=== PATIENT | male | born 1985 | race Caucasian/White ===

== ENCOUNTER 2019-11-18 08:02 | Emergency (ER) | payer SELFPAY ==
[~2019-11-18] VITALS: Ht 195.5 cm; Wt 97.7 kg
[2019-11-18] MEDS ORDERED: LORazepam INJ 2 MG/ML (ATIVAN) VIAL IVP STA (08:13)
[2019-11-18] MEDS ORDERED: LACTATED RINGERS 1,000 ML IV ONE (08:16)
--- NOTE | 2019-11-18 08:41 | ED General ---
General Chief Complaint: Neuro-Stroke Like Symptoms Nursing Triage Note: Patient presents to the ED via EMS with c/o left sided numbness and weakness. He states that he has been having tingling and numbness on his left side intermittently for 2 days. He reports that he was seen at [facility] 2 days ago and was told he had a pinched nerve. Patient states he has a history of TIA's. Nursing Sepsis Screen: No Definite Risk History of Present Illness Date Seen by Provider: Nov 18, 2019 Time Seen by Provider: 08:00 Initial Comments The patient is a 34-year-old male with a history of factor V Leiden and recurrent TIAs in the past per him. He presents with concern for 2 days of left- sided numbness and tingling affecting his entire left face, left arm and left leg. He reports some associated subjective minimal left-sided weakness as well. Patient was seen 2 days ago for these symptoms at the [facility] at which time labs including troponin and d-dimer and a chest x-ray were obtained (patient was reporting some chest pressure 2 days ago although denies it now) and testing was reportedly reassuring. Patient was told that his symptoms likely related to a "pinched nerve in his neck." He was provided with a soft left wrist brace and instructed to follow-up with primary care. Patient states symptoms have not abated since he was seen at [place]. He states that they have also not worsened and are about the same as they were at that visit. He denies associated fevers, nausea or vomiting, headache, neck stiffness/pain/meningismus, vision changes, shortness of breath or chest pain, abdominal pain, flank pain, dysuria or hematuria, changes in bowel habits. He denies any falls or injuries to his head or neck recently. He denies any use of drugs or alcohol. Patient is alert and oriented 4 and pleasantly and appropriately interactive and in absolutely no acute distress upon initial assessment here in the emergency department. He does appear somewhat anxious which he states is typical for him when he is in hospitals. Vital signs are appropriate here. Allergies and Home Medications Allergies Uncoded Allergies: IVP DYE (Allergy, Unknown, Shortness of Breath, 11/18/19) Patient Home Medication List Home Medication List Reviewed: Yes Review of Systems Review of Systems Constitutional: see HPI All Other Systems Reviewed Negative Unless Noted: Yes (Negative excepted noted.) Past Dfmuflb-Ewperm-Okqskw Hx Past Med/Social Hx: Reviewed Nursing Past Med/Soc Hx Patient Social History Alcohol Use: Denies Use Recreational Drug Use: No Smoking Status: Never a Smoker 2nd Hand Smoke Exposure: No Recent Foreign Travel: No Contact w/Someone Who Travel: No Recent Infectious Disease Expo: No Recent Hopitalizations: No Physical Abuse: No Sexual Abuse: No Mistreated: No Immunizations Up To Date Tetanus Booster (TDap): Unknown Seasonal Allergies Seasonal Allergies: No Past Medical History Surgeries: Yes (Multiple hernia repair) Abdominal, Testicular Respiratory: No Cardiac: No Neurological: Yes TIA Genitourinary: No Gastrointestinal: No Musculoskeletal: No Endocrine: No HEENT: No Cancer: No Psychosocial: Yes ADD/ADHD Integumentary: No Blood Disorders: Yes (Factor V) Family Medical History Reviewed Nursing Family Hx Physical Exam Vital Signs Vital Signs - First Documented 11/18/19 08:02 Temp 36.8 Pulse 82 Resp 16 B/P (MAP) 133/84 (100) Pulse Ox 100 Capillary Refill : Less Than 3 Seconds Height, Weight, BMI Height: '" Weight: lbs. oz. kg; 25.00 BMI Method: General Appearance: No Apparent Distress Comments This is a younger male appearing nontoxic and in no acute distress. He does appear mildly anxious. Head is normocephalic and atraumatic. Neck is supple and nontender. There is no neck stiffness or meningismus and the patient is able to range his neck fully in all dimensions without discomfort or distress. Oropharynx is moist. Lungs are clear to auscultation at all stations. There is a normal S1 and S2 without rubs or gallops and capillary refill is appropriate, less than 2 seconds globally. Pulses are 2+ to all 4 extremities distally and extremities are warm and well-perfused. Abdomen is soft, nontender and nondistended. Skin is warm and dry without cyanosis, clubbing or edema. Psychiatrically, the patient demonstrates appropriate mood and affect and is alert. Neurologically, examination is remarkable primarily for subjectively diminished sensation to light touch over the entire left face, left arm and left leg. Otherwise, cranial nerves II through XII are intact and no lateralizing deficits are seen. Speech is normal. Language is normal. Coordination is normal. Visual martinez are intact to confrontation and finger counting bilaterally. There is no dysmetria with bcjpbi-oy-pwfj or jygu-el-jlda bilaterally. Strength is 5 out of 5 at all joints of bilateral upper and lower extremities. Sensation is intact to light touch in right upper and lower extremities and diminished to light touch in left upper and lower extremities. The patient ambulates with a narrow, steady gait here in the emergency department. He is alert and oriented 4. Progress/Results/Core Measures Suspected Sepsis Recent Fever Within 48 Hours: No Infection Criteria Present: None New/Unexplained Altered Menta: No Sepsis Screen: No Definite Risk SIRS Temperature: Pulse: 82 Respiratory Rate: 16 Laboratory Tests 11/18/19 08:15: White Blood Count 6.6 Blood Pressure 133 /84 Mean: 100 Laboratory Tests 11/18/19 08:15: Creatinine 0.84, Platelet Count 255, Total Bilirubin 1.1H 11/18/19 08:56: INR Comment 1.1 Results/Orders Lab Results Laboratory Tests Test 11/18/19 08:15 11/18/19 08:56 Range/Units White Blood Count 6.6 4.3-11.0 10^3/uL Red Blood Count 4.84 4.35-5.85 10^6/uL Hemoglobin 14.1 13.3-17.7 G/DL Hematocrit 41 40-54 % Mean Corpuscular Volume 84 80-99 FL Mean Corpuscular Hemoglobin 29 25-34 PG Mean Corpuscular Hemoglobin Concent 35 32-36 G/DL Red Cell Distribution Width 11.7 10.0-14.5 % Platelet Count 255 130-400 10^3/uL Mean Platelet Volume 11.0 H 7.4-10.4 FL Neutrophils (%) (Auto) 65 42-75 % Lymphocytes (%) (Auto) 24 12-44 % Monocytes (%) (Auto) 9 0-12 % Eosinophils (%) (Auto) 1 0-10 % Basophils (%) (Auto) 1 0-10 % Neutrophils # (Auto) 4.3 1.8-7.8 X 10^3 Lymphocytes # (Auto) 1.6 1.0-4.0 X 10^3 Monocytes # (Auto) 0.6 0.0-1.0 X 10^3 Eosinophils # (Auto) 0.1 0.0-0.3 10^3/uL Basophils # (Auto) 0.1 0.0-0.1 10^3/uL Sodium Level 138 135-145 MMOL/L Potassium Level 3.5 L 3.6-5.0 MMOL/L Chloride Level 99 98-107 MMOL/L Carbon Dioxide Level 22 21-32 MMOL/L Anion Gap 17 H 5-14 MMOL/L Blood Urea Nitrogen 12 7-18 MG/DL Creatinine 0.84 0.60-1.30 MG/DL Estimat Glomerular Filtration Rate > 60 BUN/Creatinine Ratio 14 Glucose Level 109 H 70-105 MG/DL Calcium Level 9.2 8.5-10.1 MG/DL Corrected Calcium 8.9 8.5-10.1 MG/DL Total Bilirubin 1.1 H 0.1-1.0 MG/DL Aspartate Amino Transf (AST/SGOT) 9 5-34 U/L Alanine Aminotransferase (ALT/SGPT) 7 0-55 U/L Alkaline Phosphatase 79 40-136 U/L Troponin I < 0.30 <0.30 NG/ML Total Protein 7.2 6.4-8.2 GM/DL Albumin 4.4 3.2-4.5 GM/DL Prothrombin Time 14.4 12.2-14.7 SEC INR Comment 1.1 0.8-1.4 Activated Partial Thromboplast Time 20 L 24-35 SEC My Orders Orders - FREDO AVELAR MD Cbc With Automated Diff (11/18/19 08:13) Comprehensive Metabolic Panel (11/18/19 08:13) Troponin I Fs (11/18/19 08:13) Ekg Tracing (11/18/19 08:13) Chest 1 View Ap/Pa Only (11/18/19 08:13) Protime With Inr (11/18/19 08:13) Partial Thromboplastin Time (11/18/19 08:13) Ct Head Wo (11/18/19 08:13) Lorazepam Injection (Ativan Injection) (11/18/19 08:13) Ed Iv/Invasive Line Start (11/18/19 08:16) Lactated Ringers (Lr 1000 Ml Iv Solution (11/18/19 08:16) Aspirin Tablet (Aspirin Tablet) (11/18/19 09:30) Potassium Chloride (Tablet) (K Dur Table (11/18/19 09:30) Medications Given in ED Current Medications Medications Dose Ordered Sig/Becca Route Start Time Stop Time Status Last Admin Dose Admin Lactated Ringer's 1,000 ml @ 0 mls/hr Q0M ONCE IV 11/18/19 08:16 11/18/19 08:18 DC 11/18/19 08:37 0 MLS/HR Vital Signs/I&O 11/18/19 08:02 Temp 36.8 Pulse 82 Resp 16 B/P (MAP) 133/84 (100) Pulse Ox 100 Capillary Refill : Less Than 3 Seconds Blood Pressure Mean: 100 Progress Note : Time: 09:00 Progress Note 34-year-old male with a history of factor V Leiden and recurrent TIAs in the past per him, not on any chronic medications, who presents for evaluation of 2 days of numbness and tingling to the left side of his body involving left face, arm and leg. Also reporting subjective weakness on the left side which she state s is minimal but this is not appreciated objectively on exam. Cardiorespiratory workup including d-dimer was reportedly reassuring 2 days ago at [place]; we'll attempt to obtain records. We will check labs and EKG and chest x-ray and a noncontrast head CT and will then reevaluate. Given hypercoagulable state, history of recurrent TIAs in the past and 2 days of left-sided numbness and tingling, anticipate that the patient will require transfer to a higher level of care for neurology evaluation, likely MRI and further care as indicated. Patient is in agreement with this plan of care. NIHSS 1. Patient does not qualify for thrombolysis with alteplase given 2 full days of symptoms and minimal, nondisabling deficits. 1000: Records have arrived from [facility]; unremarkable cardiorespiratory workup at that facility noted. Labs and imaging are without evidence of acute process aside from mild hypokalemia which has been addressed with 40 mEq of oral potassium here in the emergency department. Patient has received a normal saline fluid bolus as well as some Ativan for anxiety. Left- sided numbness and tingling are unchanged upon reassessment. Spoke with patient regarding need for further assessment in the hospital to include neurology evaluation, likely MRI and further care as indicated. Patient is in agreement. As there is no neurology support at [facility] we'll transfer the patient to [facility] where he is graciously accepted in transfer by Dr. Reusch. Patient has been given 324mg of aspirin prior to transfer to [facility]. ECG Comment Sinus tachycardia, rate 100, no acute ST elevation or depression, mildly prolonged QTc at 502, WA 162, QRS 100, nonischemic tracing, EP interpretation. Diagnostic Imaging Comments XR chest: no acute process, EP interp CT HEAD WO CLINICAL INDICATION: Patient left-sided numbness x2 days. Patient has history of TIAs. EXAM: Axial CT scan of the brain without IV contrast with coronal and sagittal reformatted images. Auto Exposure Controls were utilized during the CT exam to meet ALARA standards for radiation dose reduction. COMPARISON: None. FINDINGS: There is motion and skull streak artifact which obscures portions of the brainstem, cerebellum, and portions of the brain and skull. There is no evidence of acute cerebral infarct, intracranial hemorrhage, or gross mass effect. The brain parenchymal volume appears appropriate for patient's age. There is normal garcia-white matter distinction. There is no significant midline shift or herniation. There is no evidence of hydrocephalus. The basal cisterns are unremarkable. The skull, extracranial soft tissue, and orbits are unremarkable. The paranasal sinuses are unremarkable. Temporal bones show no significant abnormality. IMPRESSION: Unremarkable CT scan of the brain. Dictated on workstation # [id number] Departure Impression Primary Impression: Left sided numbness Additional Impression: Acute hypokalemia Disposition: XF SHT-TRM HOSP Condition: Stable Transfer Transfer Reason: Exceeds level of care Time Spoke to Accepting Phy: 10:00 Transfer Progress Notes 34-year-old who presents with 2 days of left-sided numbness and tingling as well as subjective but not objective left-sided weakness. 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 Requires evaluation by neurology; no neurology coverage at [facility]. We will therefore proceed with transfer to [facility] where the patient is graciously accepted in transfer by Dr. Lobato. Transfer Time: 10:00 Method of Transfer: EMS FREDO AVELAR MD Nov 18, 2019 08:41
[2019-11-18 08:51] LABS: HEMATOCRIT 41 % (40-54); HEMOGLOBIN 14.1 G/DL (13.3-17.7); MEAN CORPUSCULAR HEMOGLOBIN 29 PG (25-34); MEAN CORPUSCULAR HGB CONC 35 G/DL (32-36); MEAN CORPUSCULAR VOLUME 84 FL (80-99); WHITE BLOOD COUNT 6.6 10^3/uL (4.3-11.0)
[2019-11-18 08:52] LABS: BASOPHILS # (AUTO) 0.1 10^3/uL (0.0-0.1); BASOPHILS % (AUTO) 1 % (0-10); EOSINOPHILS # (AUTO) 0.1 10^3/uL (0.0-0.3); EOSINOPHILS % (AUTO) 1 % (0-10); LYMPHOCYTES # (AUTO) 1.6 X 10^3 (1.0-4.0); LYMPHOCYTES % (AUTO) 24 % (12-44); MONOCYTES # (AUTO) 0.6 X 10^3 (0.0-1.0); MONOCYTES % (AUTO) 9 % (0-12); NEUTROPHILS # (AUTO) 4.3 X 10^3 (1.8-7.8); NEUTROPHILS % (AUTO) 65 % (42-75); PLATELET COUNT 255 10^3/uL (130-400); RED CELL DISTRIBUTION WIDTH 11.7 % (10.0-14.5)
--- NOTE | 2019-11-18 09:00 | Diagnostic Imaging Report ---
EXAMINATION: Chest, 1 view. HISTORY: Left-sided numbness. COMPARISON: None available. FINDINGS: The lung volumes are normal. No focal consolidation is seen. No large pleural effusion or pneumothorax is seen. The cardiomediastinal silhouette is normal in size and contour. No acute osseous abnormality is seen. IMPRESSION: No acute pleuroparenchymal process. Dictated by: Dictated on workstation # [id number]
--- NOTE | 2019-11-18 09:10 | Diagnostic Imaging Report ---
CLINICAL INDICATION: Patient left-sided numbness x2 days. Patient has history of TIAs. EXAM: Axial CT scan of the brain without IV contrast with coronal and sagittal reformatted images. Auto Exposure Controls were utilized during the CT exam to meet ALARA standards for radiation dose reduction. COMPARISON: None. FINDINGS: There is motion and skull streak artifact which obscures portions of the brainstem, cerebellum, and portions of the brain and skull. There is no evidence of acute cerebral infarct, intracranial hemorrhage, or gross mass effect. The brain parenchymal volume appears appropriate for patient's age. There is normal garcia-white matter distinction. There is no significant midline shift or herniation. There is no evidence of hydrocephalus. The basal cisterns are unremarkable. The skull, extracranial soft tissue, and orbits are unremarkable. The paranasal sinuses are unremarkable. Temporal bones show no significant abnormality. IMPRESSION: Unremarkable CT scan of the brain. Dictated by: Dictated on workstation # [id number]
[2019-11-18 09:11] LABS: ALANINE AMINOTRANSFERASE 7 U/L (0-55); ALBUMIN 4.4 GM/DL (3.2-4.5); ALKALINE PHOSPHATASE 79 U/L (40-136); BILIRUBIN,TOTAL 1.1 MG/DL (0.1-1.0); BUN/CREATININE RATIO 14; CALCIUM 9.2 MG/DL (8.5-10.1); CARBON DIOXIDE 22 MMOL/L (21-32); CHLORIDE 99 MMOL/L (98-107); CREATININE SERUM 0.84 MG/DL (0.60-1.30); GFR ESTIMATED > 60; GLUCOSE 109 MG/DL (70-105); POTASSIUM 3.5 MMOL/L (3.6-5.0); SODIUM 138 MMOL/L (135-145); TOTAL PROTEIN 7.2 GM/DL (6.4-8.2)
[2019-11-18 09:24] LABS: INR 1.1 (0.8-1.4); PROTHROMBIN TIME PATIENT 14.4 SEC (12.2-14.7)
[2019-11-18] MEDS ORDERED: KCL 20 MEQ TAB (K-DUR) PO ONE (09:30)
[2019-11-18] MEDS ORDERED: ASPIRIN 325 MG (5 GR) TABLET PO ONE (09:30)
[2019-11-18] MEDS ORDERED: LORazepam 0.5 MG (ATIVAN) TABLET PO STA (10:12)
[2019-11-18 10:42] VITALS: BP 123/78
[2019-11-18 10:54] VITALS: BP 122/69
== END 2019-11-18 10:56 | disposition short-term general hospital (02) ==
LOC: ER FS 08:05 → EDBD 08:05 → ER FS 10:56
DX: E87.6 Hypokalemia (principal); Z86.73 Personal history of transient ischemic attack (TIA), and cerebral infarction without residual deficits; Z91.041 Radiographic dye allergy status
CPT/HCPCS: 36415; 70450; 71045; 80053; 84484; 85025; 85610; 85730; 93005

== ENCOUNTER 2020-07-17 15:14 | Emergency (ER) | payer OTHER ==
[~2020-07-17] VITALS: Ht 195.5 cm; Wt 97.7 kg
[2020-07-17 16:15] LABS: BASOPHILS % (AUTO) 1 % (0-10); EOSINOPHILS % (AUTO) 0 % (0-10); HEMATOCRIT 44 % (40-54); HEMOGLOBIN 15.4 G/DL (13.3-17.7); LYMPHOCYTES # (AUTO) 1.5 X 10^3 (1.0-4.0); LYMPHOCYTES % (AUTO) 15 % (12-44); MEAN CORPUSCULAR HEMOGLOBIN 30 PG (25-34); MEAN CORPUSCULAR HGB CONC 35 G/DL (32-36); MEAN CORPUSCULAR VOLUME 86 FL (80-99); MEAN PLATELET VOLUME 10.2 FL (7.4-10.4); MONOCYTES # (AUTO) 0.7 X 10^3 (0.0-1.0); MONOCYTES % (AUTO) 7 % (0-12); NEUTROPHILS # (AUTO) 7.5 X 10^3 (1.8-7.8); NEUTROPHILS % (AUTO) 77 % (42-75); PLATELET COUNT 240 10^3/uL (130-400); WHITE BLOOD COUNT 9.8 10^3/uL (4.3-11.0)
[2020-07-17 16:16] LABS: BASOPHILS # (AUTO) 0.1 10^3/uL (0.0-0.1)
[2020-07-17 16:26] LABS: EOSINOPHILS % (MANUAL) 2 %; LYMPHOCYTES % (MANUAL) 16 %; MONOCYTES % (MANUAL) 8 %; NEUTROPHILS % (MANUAL) 74 %; RBC MORPH NORMAL
[2020-07-17 16:27] LABS: ALANINE AMINOTRANSFERASE 9 U/L (0-55); ALKALINE PHOSPHATASE 84 U/L (40-136); BILIRUBIN,TOTAL 0.8 MG/DL (0.1-1.0); BUN/CREATININE RATIO 18; CALCIUM 9.1 MG/DL (8.5-10.1); CARBON DIOXIDE 27 MMOL/L (21-32); CHLORIDE 103 MMOL/L (98-107); CREATININE SERUM 0.87 MG/DL (0.60-1.30); GFR ESTIMATED > 60; GLUCOSE 97 MG/DL (70-105); POTASSIUM 3.9 MMOL/L (3.6-5.0); SODIUM 139 MMOL/L (135-145); TOTAL PROTEIN 7.2 GM/DL (6.4-8.2)
[2020-07-17 16:28] LABS: ALBUMIN 4.4 GM/DL (3.2-4.5)
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
[2020-07-17] MEDS ORDERED: morphine INJ 10 MG/ML 1ML (SYR OR VIAL) IVP STA (16:42)
[2020-07-17] MEDS ORDERED: ONDANSETRON 4 MG/2 ML (SDV) Z0FRAN IVP ONE (16:45)
[2020-07-17] MEDS ORDERED: ONDANSETRON 4 MG (ZOFRAN) ORAL DISSOLVE TAB ONE (16:47)
[2020-07-17] MEDS ORDERED: ONDANSETRON 4 MG (ZOFRAN) ORAL DISSOLVE TAB PO STA (16:54)
[2020-07-17] MEDS ORDERED: morphine INJ 10 MG/ML 1ML (SYR OR VIAL) IM STA (16:54)
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
[2020-07-17] MEDS ORDERED: TRM50T PO (17:28)
[2020-07-17 17:35] VITALS: BP 135/68
== END 2020-07-17 17:34 | disposition home or self-care (01) ==
LOC: EDUNIT# 15:14 → ER FS 15:16
DX: S39.011A Strain of muscle, fascia and tendon of abdomen, initial encounter (principal); M54.9 Dorsalgia, unspecified; F41.9 Anxiety disorder, unspecified; Z91.041 Radiographic dye allergy status; Z86.73 Personal history of transient ischemic attack (TIA), and cerebral infarction without residual deficits; V89.2XXA Person injured in unspecified motor-vehicle accident, traffic, initial encounter
CPT/HCPCS: 36415; 70450; 71250; 74176; 80053; 85007; 85027

== ENCOUNTER 2021-10-09 12:28 | Emergency (ER) | payer BC, OTHER ==
[~2021-10-09] VITALS: Ht 198 cm; Wt 110.0 kg
[2021-10-09 12:47] VITALS: BP 130/89
--- NOTE | 2021-10-09 12:59 | ED General ---
General Chief Complaint: General Problems/Pain Stated Complaint: COCCYX PAIN; LRQ PAIN Source of Information: Patient Exam Limitations: No Limitations History of Present Illness Date Seen by Provider: October 09, 2021 Time Seen by Provider: 12:30 Initial Comments Patient is a 36-year-old male presents with intermittent right lower quadrant pain which is sporadic for the past several months. Likewise he presents with sharp tailbone pain intermittent for the past several months. Currently denies tailbone pain and abdominal pain. Patient denies recent fall or injury. [place] He does not take any medications or being evaluated by a primary care physician for his current symptoms. No other symptoms or complaints Timing/Duration: 1-3 Hours Severity: Moderate Modifying Factors: improves with Other Associated Systoms: Other Allergies and Home Medications Allergies Uncoded Allergies: IVP DYE (Allergy, Unknown, Shortness of Breath, 11/18/19) Patient Home Medication List Home Medication List Reviewed: Yes Tramadol HCl (Tramadol HCl) 50 Mg Tablet, 50 MG PO Q6H PRN for PAIN Prescribed by: HARISH TORRES on 07/17/20 1728 Review of Systems Review of Systems Constitutional: see HPI EENTM: see HPI Respiratory: see HPI Cardiovascular: see HPI Genitourinary: see HPI Musculoskeletal: see HPI Skin: see HPI Psychiatric/Neurological: See HPI Hematologic/Lymphatic: See HPI Immunological/Allergic: see HPI All Other Systems Reviewed Negative Unless Noted: Yes Past Bngbhit-Plgaua-Zfloez Hx Patient Social History Tobacco Use?: Yes Use of E-Cig and/or Vaping dev: No Substance use?: No Alcohol Use?: Yes Alcohol Frequency: Once in a while Immunizations Up To Date Tetanus Booster (TDap): Unknown Seasonal Allergies Seasonal Allergies: No Past Medical History Surgeries: Yes (Multiple hernia repair) Abdominal, Testicular Respiratory: No Cardiac: No Neurological: Yes TIA Genitourinary: No Gastrointestinal: No Musculoskeletal: No Endocrine: No HEENT: No Cancer: No Psychosocial: Yes ADD/ADHD Integumentary: No Blood Disorders: Yes (Factor V) Physical Exam Vital Signs Capillary Refill : Height, Weight, BMI Height: '" Weight: lbs. oz. kg; 25.00 BMI Method: General Appearance: No Apparent Distress Neck: Full Range of Motion Respiratory: Normal Breath Sounds Cardiovascular: Regular Rate, Rhythm Neurologic/Psychiatric: Alert, Oriented x3 Progress/Results/Core Measures Suspected Sepsis SIRS Temperature: Pulse: Respiratory Rate: Blood Pressure / Mean: Results/Orders Vital Signs/I&O Capillary Refill : Departure Communication (Admissions) Patient with emergency medical screening exam. Patient does not require diagnosis or treatment in the emergency department today. He is instructed to follow-up with local primary care provider for outpatient screening and treatment. Impression Primary Impression: Musculoskeletal back pain Disposition: HOME, SELF-CARE Condition: Stable Departure-Patient Inst. Decision time for Depature: 12:59 Referrals: NO,LOCAL PHYSICIAN (PCP/Family) Primary Care Physician Add. Discharge Instructions: Please establish with a local primary care doctor for evaluation of chronic tailbone and right flank pain. In the meantime, take 2 Aleve twice daily. All discharge instructions reviewed with patient and/or family. Voiced understanding. HARISH TORRES DO October 09, 2021 12:59
== END 2021-10-09 13:00 | disposition home or self-care (01) ==
LOC: EDUNIT# 12:28 → ER FS 12:30
DX: M53.3 Sacrococcygeal disorders, not elsewhere classified (principal)
CPT/HCPCS: 99281

== ENCOUNTER → 2021-10-09 | Outpatient (CLI) | payer BC ==
[~2021-10-09] MED LIST: TRM50T PO
--- NOTE | 2021-10-09 17:05 | Diagnostic Imaging Report ---
EXAM: SACRUM COCCYX INDICATION: Sacrococcygeal pain. COMPARISON: CT pelvis without contrast 07/17/2020. FINDINGS: Subtle lucency and ill-defined cortex involving the tip of the sacrum with mild posterior angulation. Visualized paravertebral soft tissues are unremarkable. IMPRESSION: Ill-defined cortex subtle lucency through the distal coccyx is indeterminate. Although the alignment is stable compared to 07/17/2020, the lucency may be new versus differences in modality. Recommend further evaluation with CT or MRI. Dictated by: Dictated on workstation # [id number]
== END ==
LOC: RAD FS 14:45
PROVIDERS: ATTEND Nurse Practitioner Family
DX: M53.3 Sacrococcygeal disorders, not elsewhere classified (principal); L02.91 Cutaneous abscess, unspecified
CPT/HCPCS: 72220

== ENCOUNTER → 2021-10-13 | Outpatient (CLI) | payer BC ==
--- NOTE | 2021-10-13 11:55 | Diagnostic Imaging Report ---
PROCEDURE: CT pelvis without contrast. TECHNIQUE: Multiple contiguous axial images were obtained through the pelvis without the use of intravenous contrast. Sagittal and coronal reformations were performed. Auto Exposure Controls were utilized during the CT exam to meet ALARA standards for radiation dose reduction. INDICATION: Coccygeal pain COMPARED with study 07/17/2020. FINDINGS: Within the far inferomedial and anterior left gluteal cleft, near the base of the scrotum, is focal induration of the subcutaneous fat and skin thickening which may reflect an inflammatory process. No drainable fluid collection or michael abscess. The ischiorectal fossa and fat within the mesorectal fascia appeared normal. Rectum unremarkable. Prostate, seminal vesicles and urinary bladder normal. The sacrococcygeal levels unremarkable. The visualized lower lumbar spine unremarkable. SI joints and symphysis intact. The superior and inferior pubic rami intact. Femoral heads directed into the acetabula. There are chronic degenerative changes to the bilateral hips without fragmentation, necrosis, fracture or collapse. No intra or retroperitoneal inflammatory process. IMPRESSION: Very equivocal findings for some mild skin edema and thickening in the far inferoanterior left gluteal cleft near the base of the scrotum. No demonstrated fluid collection or foreign body. No drainable abscess. No other potential acute finding, the study otherwise negative. Dictated by: Dictated on workstation # [id number]
== END ==
LOC: RAD FS 10:04
PROVIDERS: ATTEND Surgery
DX: M53.3 Sacrococcygeal disorders, not elsewhere classified (principal)
CPT/HCPCS: 72192

== ENCOUNTER 2021-10-29 20:12 | Emergency (ER) | payer BC ==
[~2021-10-29] VITALS: Ht 195.5 cm; Wt 110.0 kg
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
[2021-10-29] MEDS ORDERED: CYCLOBENZAPRINE 10 MG (FLEXERIL) TAB PO STA (20:35)
[2021-10-29] MEDS ORDERED: IBUPROFEN TABLET 200 MG TAB PO STA (20:35)
--- NOTE | 2021-10-29 21:06 | Diagnostic Imaging Report ---
Ribs/unilateral with chest INDICATION: Right rib pain after fall. COMPARISON: CT chest, abdomen and pelvis of 07/17/2020. TECHNIQUE: PA chest with 2 views of the right ribs. FINDINGS: Lungs are clear. No pleural effusion or pneumothorax. Normal cardiomediastinal silhouette. There is an ovoid radiodense structure that moves throughout the examination and is most likely extrinsic to the patient. No acute or healing fracture on the right side. IMPRESSION: 1. No pneumothorax. 2. No acute right-sided rib fracture. Dictated by: Dictated on workstation # [id number]
[2021-10-29] MEDS ORDERED: RX-CYCLOBENZAPRINE 10 MG (FLEXERIL) TAB PPK#3 PO STA (21:33)
[2021-10-29] MEDS ORDERED: CYCL10TA25 PO (21:40)
[2021-10-29] MEDS ORDERED: ACHD5005 PO (21:40)
[2021-10-29 21:50] VITALS: BP 153/90
[2021-11-01] MEDS ORDERED: DICY20TA PO (13:13)
== END 2021-10-29 21:50 | disposition home or self-care (01) ==
LOC: EDUNIT# 20:12 → ER FS 20:15
DX: S20.211A Contusion of right front wall of thorax, initial encounter (principal); W18.30XA Fall on same level, unspecified, initial encounter
CPT/HCPCS: 71101

== ENCOUNTER 2021-10-30 20:19 | Emergency (ER) | payer BC ==
[~2021-10-30] VITALS: Ht 195.5 cm; Wt 104.0 kg
[~2021-10-30 20:19] MED LIST changes: +ACHD5005 PO; +CYCL10TA25 PO
[2021-10-30 20:53] LABS: BILIRUBIN,URINE NEGATIVE (NEGATIVE); CLARITY,URINE CLEAR; COLOR,URINE YELLOW; GLUCOSE, URINE (UA) NEGATIVE (NEGATIVE); KETONES,URINE NEGATIVE (NEGATIVE); LEUKOCYTE ESTERASE ,URINE NEGATIVE (NEGATIVE); NITRITE,URINE NEGATIVE (NEGATIVE); PROTEIN,URINE NEGATIVE (NEGATIVE)
[2021-10-30 20:57] LABS: BACTERIA,URINE NEGATIVE /HPF; RBC,URINE 0-2 /HPF; SQUAMOUS EPITHELIAL CELL,UR RARE /HPF
[2021-10-30] MEDS ORDERED: HYDROcodone/APAP 5 MG/325 MG (LORTAB) TAB PO ONE (21:00)
--- NOTE | 2021-10-30 21:07 | ED General ---
General Chief Complaint: General Problems/Pain Stated Complaint: FX RI, PAIN RADIATING TO BACK,ABD PAIN Nursing Triage Note: Pt was seen in ED and dx with rib fractures but reports pain has moved to RLQ abd. Pt denies n/v, or urinary pain. Pt has not taken his Flexeril or Hydrocodone/APAP. Denies new injury. Source of Information: Patient Exam Limitations: No Limitations History of Present Illness Date Seen by Provider: October 30, 2021 Time Seen by Provider: 22:30 Initial Comments Patient is a 36-year-old male who presents with multiple medical complaints. Patient was evaluated in this emergency department for right rib/flank pain from fall and rib injury 2 weeks ago which was reaggravated after horseback riding. Patient had a chest x-ray performed yesterday that was nondiagnostic. He was prescribed hydrocodone. This morning, the patient woke stating he felt severe right lower quadrant pain lasting 4 and half hours, which prevented him from moving reaching for phone or contacting 911. Pain is worse with movement and is not reproduced with palpitation or improved with position change. He denies nausea vomiting, urinary frequency urgency or hematuria. He denies flank pain. He denies testicular pain tenderness. Patient's pain was able to improve without treatment and he was able to drive to the emergency department. No history of appendicitis or kidney stones Timing/Duration: 4-6 Hours Severity: Moderate, Severe Modifying Factors: improves with Other Associated Systoms: Other Allergies and Home Medications Allergies Uncoded Allergies: IVP DYE (Allergy, Unknown, Shortness of Breath, 11/18/19) Patient Home Medication List Home Medication List Reviewed: Yes Cyclobenzaprine HCl (Cyclobenzaprine HCl) 10 Mg Tablet, 10 MG PO Q8H PRN for SPASMS Prescribed by: DARIAN SWEET on 10/29/212139 Hydrocodone/Acetaminophen (Hydrocodone-Acetamin 5-325 mg) 5 Mg-325 Mg Tablet, 1 TAB PO Q6H PRN for PAIN-SEVERE (8-10) Prescribed by: DARIAN SWEET on 10/29/212140 Discontinued Medications Tramadol HCl (Tramadol HCl) 50 Mg Tablet, 50 MG PO Q6H PRN for PAIN Prescribed by: HARISH TORRES on 07/17/20 1728 Review of Systems Review of Systems Constitutional: see HPI EENTM: see HPI Respiratory: see HPI Cardiovascular: see HPI Gastrointestinal: see HPI Genitourinary: see HPI Musculoskeletal: see HPI Skin: see HPI Psychiatric/Neurological: See HPI Hematologic/Lymphatic: See HPI Immunological/Allergic: see HPI All Other Systems Reviewed Negative Unless Noted: Yes Past Nyglupi-Twnyyn-Ekrjgr Hx Patient Social History Tobacco Use?: Yes Use of E-Cig and/or Vaping dev: No Substance use?: No Alcohol Use?: No Pt feels they are or have been: No Immunizations Up To Date Tetanus Booster (TDap): Unknown Influenza Vaccine Up-to-Date: No; Not Current First/Initial COVID19 Vaccinat: denies Seasonal Allergies Seasonal Allergies: No Past Medical History Surgery/Hospitalization HX: TIA's x 5, Hernia repairs x 4-5 Surgeries: Yes (Multiple hernia repair) Abdominal, Testicular Respiratory: No Cardiac: No Neurological: Yes TIA Genitourinary: No Gastrointestinal: No Musculoskeletal: No Endocrine: No HEENT: No Cancer: No Psychosocial: Yes ADD/ADHD Integumentary: No Blood Disorders: Yes (Factor V) Physical Exam Vital Signs Vital Signs - First Documented 10/30/21 20:24 Temp 37.1 Pulse 83 Resp 17 B/P (MAP) 142/83 (102) Pulse Ox 97 O2 Delivery Room Air Capillary Refill : Less Than 3 Seconds Height, Weight, BMI Height: '" Weight: lbs. oz. kg; 27.00 BMI Method: General Appearance: No Apparent Distress, WD/WN Eyes: Bilateral Eye Normal Inspection, Bilateral Eye PERRL Respiratory: Lungs Clear, Normal Breath Sounds Cardiovascular: Regular Rate, Rhythm Gastrointestinal: Soft; No Guarding, No Hepatomegaly; Tenderness (Minimal tenderness right lower quadrant, negative Jose Angel's, no rebound rigidity or guarding.) Back: No Vertebral Tenderness Neurologic/Psychiatric: Alert, Oriented x3, No Motor/Sensory Deficits Progress/Results/Core Measures Suspected Sepsis SIRS Temperature: Pulse: 83 Respiratory Rate: 17 Blood Pressure 142 /83 Mean: 102 Results/Orders Lab Results Laboratory Tests Test 10/30/21 20:28 Range/Units Urine Color YELLOW Urine Clarity CLEAR Urine pH 6.0 5-9 Urine Specific [place] 1.025 H 1.016-1.022 Urine Protein NEGATIVE NEGATIVE Urine Glucose (UA) NEGATIVE NEGATIVE Urine Ketones NEGATIVE NEGATIVE Urine Nitrite NEGATIVE NEGATIVE Urine Bilirubin NEGATIVE NEGATIVE Urine Urobilinogen 0.2 < = 1.0 MG/DL Urine Leukocyte Esterase NEGATIVE NEGATIVE Urine RBC (Auto) NEGATIVE NEGATIVE Urine RBC 0-2 /HPF Urine WBC NONE /HPF Urine Squamous Epithelial Cells RARE /HPF Urine Crystals NONE /LPF Urine Bacteria NEGATIVE /HPF Urine Casts NONE /LPF Urine Mucus SMALL H /LPF Urine Culture Indicated NO My Orders Orders - HARISH TORRES DO Abdomen (Kub) 1 View (10/30/21 20:49) Ua Culture If Indicated (10/30/21 20:49) Hydrocodone/Apap 5/325 Tablet (Lortab 5 (10/30/21 21:00) Vital Signs/I&O 10/30/21 20:24 Temp 37.1 Pulse 83 Resp 17 B/P (MAP) 142/83 (102) Pulse Ox 97 O2 Delivery Room Air Capillary Refill : Less Than 3 Seconds Blood Pressure Mean: 102 Departure Communication (Admissions) KUB: No identifiable large kidney stone Patient with right lower quadrant pain significantly improved since symptoms first began several hours ago. Abdomen soft, nonsurgical on my exam. Pain addressed. Will obtain UA and KUB looking for evidence of kidney stone or. Recommendations are watchful waiting and PCP follow-up Impression Primary Impression: Right lower quadrant pain Disposition: 01 HOME, SELF-CARE Condition: Stable Departure-Patient Inst. Decision time for Depature: 21:06 Referrals: [facility] (PCP) Primary Care Physician MILLICENT POLLOCK APRN (Family) Primary Care Physician Patient Instructions: Severe Abdominal Pain Add. Discharge Instructions: You were evaluated in the emergency department for possible causes of severe abdominal pain. Lab, imaging studies were performed and are nondiagnostic. Please continue home pain medications take daily laxative and follow-up with your PCP in 2 to 3 days if symptoms persist. Avoid heavy lifting, strenuous physical activity. Return to the ED if new or worsening symptoms. All discharge instructions reviewed with patient and/or family. Voiced understanding. HARISH TORRES DO October 30, 2021 21:07
--- NOTE | 2021-10-30 21:14 | Diagnostic Imaging Report ---
ABDOMEN (KUB) 1 VIEW INDICATION: Abdominal pain. COMPARISON: 07/17/2020 TECHNIQUE: AP view of the abdomen. FINDINGS: Nonobstructive bowel gas pattern. A small to moderate volume of clonic stool is present. No abnormal soft tissue mineralization. No features of free intraperitoneal air. IMPRESSION: Small to moderate volume of colonic stool could be due to constipation in the appropriate setting. Dictated by: Dictated on workstation # [id number]
[2021-10-30 21:20] VITALS: BP 138/87
[2021-11-01] MEDS ORDERED: DICY20TA PO (13:13)
== END 2021-10-30 21:20 | disposition home or self-care (01) ==
LOC: EDUNIT# 20:19 → ER FS 20:21
DX: R10.31 Right lower quadrant pain (principal); T40.2X6A Underdosing of other opioids, initial encounter; Z91.14 Patient's other noncompliance with medication regimen; Z87.19 Personal history of other diseases of the digestive system
CPT/HCPCS: 74018; 81000

== ENCOUNTER → 2021-11-01 | Emergency (ER) | payer BC ==
[~2021-11-01] VITALS: Ht 195.5 cm; Wt 104.0 kg
[~2021-11-01] MED LIST changes: +DICY20TA PO; +KETOROLAC 60 MG/2 ML VIAL IM ONE
--- NOTE | 2021-11-01 12:38 | ED Abdominal Pain ---
General Chief Complaint: Abdominal/GI Problems Nursing Triage Note: right rib pain x 1 week related to fall, RLQ PAIN X 2 DAYS Source of Information: Patient Exam Limitations: No Limitations History of Present Illness Date Seen by Provider: Nov 01, 2021 Time Seen by Provider: 11:45 Initial Comments Patient is a 36-year-old male who presents with intermittent right sided rib/flank pain after falling approximately 3 weeks ago. Patient has been evaluated in this ER multiple times for the same and has had x-rays which were nondiagnostic. He has been prescribed oxycodone. He has not follow-up with a primary care provider. He was seen in the emergency department 2 days ago for vague right lower quadrant pain. UA and KUB abdominal film were not indicative of pathology. Today's the patient's pain returned to its moderate to severe. Patient reports feeling paralyzed and anxious. Denies nausea vomiting, fever chills and sweats. No constipation or diarrhea. No other acute symptoms or complaints. Timing/Duration: Gone Now, Other Severity/Quality: Other Location: Other Radiation: Other Activities at Onset: Other Modifying Factors: Improves With Other Associated Symptoms: Other Allergies and Home Medications Allergies Coded Allergies: Iodinated Contrast Media (Verified Allergy, Severe, Anaphylaxis, 11/01/21) nut - unspecified (Verified Allergy, Severe, Anaphylaxis, 11/01/21) Patient Home Medication List Home Medication List Reviewed: Yes Cyclobenzaprine HCl (Cyclobenzaprine HCl) 10 Mg Tablet, 10 MG PO Q8H PRN for SPASMS Prescribed by: DARIAN SWEET on 10/29/21 2140 Hydrocodone/Acetaminophen (Hydrocodone-Acetamin 5-325 mg) 5 Mg-325 Mg Tablet, 1 TAB PO Q6H PRN for PAIN-SEVERE (8-10) Prescribed by: DARIAN NÚÑEZRT on 10/29/21 2141 Discontinued Medications Tramadol HCl (Tramadol HCl) 50 Mg Tablet, 50 MG PO Q6H PRN for PAIN Prescribed by: HARISH TORRES on 07/17/20 1728 Review of Systems Review of Systems Constitutional: see HPI EENTM: See HPI Respiratory: See HPI Cardiovascular: See HPI Gastrointestinal: See HPI Genitourinary: See HPI Musculoskeletal: see HPI Skin: see HPI Psychiatric/Neurological: See HPI Endocrine: See HPI Hematologic/Lymphatic: See HPI All Other Systems Reviewed Negative Unless Noted: Yes Past Smhwcsz-Rovbfd-Xwvryb Hx Patient Social History Tobacco Use?: Yes Use of E-Cig and/or Vaping dev: No Substance use?: No Alcohol Use?: No Immunizations Up To Date Tetanus Booster (TDap): Unknown First/Initial COVID19 Vaccinat: denies Seasonal Allergies Seasonal Allergies: No Past Medical History Surgery/Hospitalization HX: multiple abdominal surgeries related to umbillical hernia with mesh placement Surgeries: Yes (Multiple hernia repair) Abdominal, Testicular Respiratory: No Cardiac: No Neurological: Yes TIA Genitourinary: No Gastrointestinal: No Musculoskeletal: No Endocrine: No HEENT: No Cancer: No Psychosocial: Yes ADD/ADHD Integumentary: No Blood Disorders: Yes (Factor V) Physical Exam Vital Signs Vital Signs - First Documented 11/01/21 11:55 Temp 36.9 Pulse 88 Resp 18 B/P (MAP) 119/88 (98) Pulse Ox 100 O2 Delivery Room Air Capillary Refill : Height/Weight/BMI Height: '" Weight: lbs. oz. kg; 27.00 BMI Method: General Appearance: WD/WN, other (Anxious) HEENT: PERRL/EOMI Neck: full range of motion, supple Respiratory: chest non-tender, lungs clear Cardiovascular: normal peripheral pulses, regular rate, rhythm, other (Right- sided chest wall) Gastrointestinal: soft, other (Right upper quadrant pain/tender) Extremities: normal range of motion, non-tender Back: normal inspection, no CVA tenderness Neurologic/Psychiatric: no motor/sensory deficits, normal mood/affect, oriented x 3 Focused Exam Sepsis Stage: Ruled Out Progress/Results/Core Measures Results/Orders My Orders Orders - HARISH TORRES DO Ketorolac Injection (Toradol Injection) (11/01/21 12:00) Ct Chest/Abdomen/Pelvis Wo (11/01/21 11:53) Medications Given in ED Current Medications Medications Dose Ordered Sig/Becca Route Start Time Stop Time Status Last Admin Dose Admin Ketorolac Tromethamine 60 mg ONCE ONCE IM 11/01/21 12:00 11/01/21 12:01 DC 11/01/21 11:58 60 MG Vital Signs/I&O 11/01/21 11/01/21 11:55 12:46 Temp 36.9 Pulse 88 86 Resp 18 18 B/P (MAP) 119/88 (98) 104/74 Pulse Ox 100 100 O2 Delivery Room Air Room Air Blood Pressure Mean: 98 Departure Communication (Admissions) CT chest/abdomen/pelvis without contrast: No acute findings per radiology report Patient with chest wall and abdominal pain disproportionate to exam. This is his third ER visit for the same. Previous lab and imaging studies reviewed with the patient in detail. I recommend taking Bentyl and following up with a local primary care provider for consideration of a GI specialist referral. Patient verbalizes understanding and agreement with discharge instructions prior to departure. Impression Primary Impression: Acute right flank pain Disposition: HOME, SELF-CARE Condition: Stable Departure-Patient Inst. Decision time for Depature: 13:11 Referrals: MILLICENT POLLOCK APRN (PCP) Primary Care Physician [facility] (Family) Primary Care Physician Patient Instructions: Flank Pain (DC) Add. Discharge Instructions: You were evaluated in the emergency department for right flank pain. CT of your chest abdomen and pelvis were performed and previous labs reviewed. The exact cause of your symptoms has not been determined. Please take Bentyl for pain follow-up with your PCP as soon as possible for consideration of GI referral. All discharge instructions reviewed with patient and/or family. Voiced understanding. Scripts Dicyclomine HCl (Dicyclomine HCl) 20 Mg Tablet 20 MG PO Q6H, #20 TAB Prov: HARISH TORRES DO 11/01/21 HARISH TORRES DO Nov 01, 2021 12:38
--- NOTE | 2021-11-01 12:53 | Diagnostic Imaging Report ---
PROCEDURE: CT chest, abdomen, and pelvis without contrast. TECHNIQUE: Multiple contiguous axial images were obtained through the chest, abdomen, and pelvis without the use of intravenous contrast. Auto Exposure Controls were utilized during the CT exam to meet ALARA standards for radiation dose reduction. INDICATION: Right-sided rib pain radiating to the right flank, fall one week ago. FINDINGS: CT CHEST: No mediastinal hematoma is identified. No pericardial or pleural fluid is detected. No pulmonary contusion or pneumothorax is detected. Bony structures are intact. No definite rib fracture is identified. IMPRESSION: Unremarkable CT of the chest. CT ABDOMEN AND PELVIS: The liver, gallbladder and spleen are unremarkable. No perihepatic or perisplenic fluid is identified. The pancreas, adrenal glands and kidneys are unremarkable. No calculi or hydronephrosis is identified. Aorta is nonaneurysmal. Bowel loops are normal in caliber. There is some mild diverticulosis of the descending and sigmoid colon but no evidence of acute diverticulitis. No free fluid or fluid collection is seen. The bladder and prostate are unremarkable. Bony structures are intact. IMPRESSION: Unremarkable noncontrast CT abdomen and pelvis study apart from mild colonic diverticulosis. No acute feature is identified. Dictated by: Dictated on workstation # [id number]
[2021-11-01 13:45] VITALS: BP 116/88
== END ==
LOC: EDUNIT# 11:42 → ER FS 11:45
DX: R10.11 Right upper quadrant pain (principal); R07.89 Other chest pain; Z28.310 Unvaccinated for COVID-19
CPT/HCPCS: 71250; 74176

== ENCOUNTER 2022-07-26 21:30 | Emergency (ER) | payer BC ==
[~2022-07-26] VITALS: Ht 195.5 cm; Wt 101.6 kg
[~2022-07-26 21:30] MED LIST changes: -KETOROLAC 60 MG/2 ML VIAL IM ONE
--- NOTE | 2022-07-26 21:46 | ED Neurological Problem ---
General Stated Complaint: L SIDE NUMBESS/WEAKNESS Source: patient History of Present Illness Date Seen by Provider: Jul 26, 2022 Time Seen by Provider: 21:33 Initial Comments 36 yo male presenting with complaint of decreased sensation to his left eye s ocket, left side of his mouth, left arm and left leg. He feels like there is weakness in his left arm and leg. He states that his symptoms started yesterday and have been constant on Saturday and now. He had tried taking clonazepam approximately 90 minutes prior to coming to the emergency department tonight because he thought some of this might be anxiety. When that was not helping his symptoms he had someone drive him here to the emergency department from [place]. He states he has had a prior stroke 2 years ago but did not feel he had any residual deficits from that. He has aching behind his left eye but denies history of migraine headaches or any head trauma. Timing/Duration: constant (2 days) Severity: mild Associated Symptoms: No confusion, No fatigue, No fever/chills, No insomnia, No loss of consciousness, No muscle spasms, No nausea/vomiting; numbness in legs/feet, paresthesia (left side of face); No ringing in ears, No seizures, No sleepy, No slurred speech, No tingling in legs/feet, No trouble walking, No vision changes; weakness (feels weak in his left leg and arm) Allergies and Home Medications Allergies Coded Allergies: Iodinated Contrast Media (Verified Allergy, Severe, Anaphylaxis, 11/01/21) nut - unspecified (Verified Allergy, Severe, Anaphylaxis, 11/01/21) Patient Home Medication List Home Medication List Reviewed: Yes Cyclobenzaprine HCl (Cyclobenzaprine HCl) 10 Mg Tablet, 10 MG PO Q8H PRN for SPASMS Prescribed by: DARIAN SWEET on 10/29/212139 Dicyclomine HCl (Dicyclomine HCl) 20 Mg Tablet, 20 MG PO Q6H Prescribed by: HARISH TORRES on 11/01/21 1313 Hydrocodone/Acetaminophen (Hydrocodone-Acetamin 5-325 mg) 5 Mg-325 Mg Tablet, 1 TAB PO Q6H PRN for PAIN-SEVERE (8-10) Prescribed by: DARIAN SWEET on 10/29/212140 Review of Systems Review of Systems Constitutional: No chills, No dizziness, No fever Eyes: Denies Blurred Vision, Denies Photophobia, Denies Vision Changes Ears, Nose, Mouth, Throat: denies ear pain, denies ear discharge, denies nose pain, denies nose discharge Respiratory: No cough, No short of breath Cardiovascular: No chest pain Gastrointestinal: no symptoms reported Genitourinary: no symptoms reported Musculoskeletal: see HPI Skin: No rash Psychiatric/Neurological: Anxiety Hematologic/Lymphatic: Denies Blood Clots, Denies Easy Bleeding, Denies Easy Bruising Past Ekxjnhk-Ndbjrd-Sodqsz Hx Immunizations Up To Date Tetanus Booster (TDap): Unknown First/Initial COVID19 Vaccinat: denies Seasonal Allergies Seasonal Allergies: No Past Medical History Surgery/Hospitalization HX: multiple abdominal surgeries related to umbillical hernia with mesh placement, Reports stroke in 2020 without residual deficits Surgeries: Yes (Multiple hernia repair) Abdominal, Testicular Respiratory: No Cardiac: No Neurological: Yes TIA Genitourinary: No Gastrointestinal: No Musculoskeletal: No Endocrine: No HEENT: No Cancer: No Psychosocial: Yes ADD/ADHD Integumentary: No Blood Disorders: Yes (Factor V) Physical Exam Vital Signs Vital Signs - First Documented 07/26/22 21:32 Temp 36.9 Pulse 98 Resp 16 B/P (MAP) 140/91 (107) Pulse Ox 99 O2 Delivery Room Air Capillary Refill : Height, Weight, BMI Height: '" Weight: lbs. oz. kg; 27.00 BMI Method: General Appearance: WD/WN, no apparent distress HEENT: PERRL/EOMI, normal ENT inspection, pharynx normal Neck: non-tender, full range of motion, supple, normal inspection Respiratory: chest non-tender, lungs clear, normal breath sounds, no respira tory distress, no accessory muscle use Cardiovascular: normal peripheral pulses, regular rate, rhythm Gastrointestinal: normal bowel sounds, non tender, soft, no pulsatile mass Extremities: normal range of motion, non-tender, normal capillary refill Neurologic/Psychiatric: alert, oriented x 3 Crainal Nerves: normal hearing, normal speech, PERRL Coordination/Gait: normal gait Motor/Sensory: no motor deficit, sensory deficit (reports decreased sensation to left side compared to the right) Skin: normal color, warm/dry Stroke Onset of Symptoms Date of Onset of Symptoms: Jul 25, 2022 Time of Symptom Onset: 07:00 Symptoms onset unknown: Yes NIH Stroke Scale Assessment Select: Initial Level of Consciousness: 0=Alert (0), Level of Consciousness- Questions: 0=Answers both month/age (0), LOC Commands: 0=Performs both tasks (0), Gaze: Normal (0), Visual Roberts: 0=No visual loss (0), Facial Movement (Facial Paresis): 0=Normal symmetrical mnt (0), Motor Function-Arms Right: 0=No drift (0), Motor Function-Arms Left: 0=No drift (0), Motor Function-Legs Right: 0=No drift (0), Motor Function-Legs Left: 0=No drift (0), Limb Ataxia: 0=Absent (0), Sensory: 1=Mild to Moderate loss (1), Best Language: 0=No aphas ia (0), Dysarthria: 0=Normal (0), Extinction & Inattention: 0=No abnormality (0), Total: 1 Stroke Thrombolytic Exclusion Age 18 or Over: Yes Acute intenal hemorrhage: No History of CVA: No Uncontrolled Coagulation Defec: No Intracranial Hemorrhage: No Severe Hypertension: No GI or Bleed: No Subarachnoid Hemorrhage: No Intracranial Neoplasm/Aneurysm: No Oral Anticoagulants: No Surgery or Trauma: No Puncture of Non-Compressible V: No Recent CPR: No Diabetic Hemorrhagic Retinopat: No Organ Biopsy: No Recent Obstetric Delivery: No Glucose: No Significant Hepatic Dysfunctio: No NIH Stoke Scale >22: No Bacterial Endocarditis: No Pericarditis: No Improving Symptoms: No Platelets: No TPA Contraindication: Yes IV - TPa Received IV - TPa Procedure Performed?: No (2 days of symptoms) Progress/Results/Core Measures Results/Orders Lab Results Laboratory Tests Test 07/26/22 21:45 07/26/22 21:47 Range/Units Urine Color YELLOW Urine Clarity CLEAR Urine pH 6.0 5-9 Urine Specific [place] <=1.005 1.016-1.022 Urine Protein NEGATIVE NEGATIVE Urine Glucose (UA) NEGATIVE NEGATIVE Urine Ketones NEGATIVE NEGATIVE Urine Nitrite NEGATIVE NEGATIVE Urine Bilirubin NEGATIVE NEGATIVE Urine Urobilinogen 0.2 < = 1.0 MG/DL Urine Leukocyte Esterase NEGATIVE NEGATIVE Urine RBC (Auto) NEGATIVE NEGATIVE Urine RBC NONE /HPF Urine WBC NONE /HPF Urine Squamous Epithelial Cells NONE /HPF Urine Crystals NONE /LPF Urine Bacteria NEGATIVE /HPF Urine Casts NONE /LPF Urine Mucus NEGATIVE /LPF Urine Culture Indicated NO Urine Opiates Screen NEGATIVE NEGATIVE Urine Oxycodone Screen NEGATIVE NEGATIVE Urine Methadone Screen NEGATIVE NEGATIVE Urine Propoxyphene Screen NEGATIVE NEGATIVE Urine Barbiturates Screen NEGATIVE NEGATIVE Ur Tricyclic Antidepressants Screen NEGATIVE NEGATIVE Urine Phencyclidine Screen NEGATIVE NEGATIVE Urine Amphetamines Screen NEGATIVE NEGATIVE Urine Methamphetamines Screen NEGATIVE NEGATIVE Urine Benzodiazepines Screen NEGATIVE NEGATIVE Urine Cocaine Screen NEGATIVE NEGATIVE Urine Cannabinoids Screen NEGATIVE NEGATIVE White Blood Count 10.0 4.3-11.0 10^3/uL Red Blood Count 5.09 4.30-5.52 10^6/uL Hemoglobin 14.9 13.3-17.7 g/dL Hematocrit 44 40-54 % Mean Corpuscular Volume 86 80-99 fL Mean Corpuscular Hemoglobin 29 25-34 pg Mean Corpuscular Hemoglobin Concent 34 32-36 g/dL Red Cell Distribution Width 11.6 10.0-14.5 % Platelet Count 246 130-400 10^3/uL Mean Platelet Volume 10.0 9.0-12.2 fL Immature Granulocyte % (Auto) 0 % Neutrophils (%) (Auto) 64 42-75 % Lymphocytes (%) (Auto) 25 12-44 % Monocytes (%) (Auto) 9 0-12 % Eosinophils (%) (Auto) 2 0-10 % Basophils (%) (Auto) 1 0-10 % Neutrophils # (Auto) 6.4 1.8-7.8 10^3/uL Lymphocytes # (Auto) 2.4 1.0-4.0 10^3/uL Monocytes # (Auto) 0.9 0.0-1.0 10^3/uL Eosinophils # (Auto) 0.2 0.0-0.3 10^3/uL Basophils # (Auto) 0.1 0.0-0.1 10^3/uL Immature Granulocyte # (Auto) 0.0 0.0-0.1 10^3/uL Prothrombin Time 12.5 12.2-14.7 SEC INR Comment 0.9 0.8-1.4 Activated Partial Thromboplast Time 28 24-35 SEC Sodium Level 136 135-145 MMOL/L Potassium Level 3.7 3.6-5.0 MMOL/L Chloride Level 96 L 98-107 MMOL/L Carbon Dioxide Level 27 21-32 MMOL/L Anion Gap 13 5-14 MMOL/L Blood Urea Nitrogen 15 7-18 MG/DL Creatinine 0.96 0.60-1.30 MG/DL Estimat Glomerular Filtration Rate 105 BUN/Creatinine Ratio 16 Glucose Level 96 70-105 MG/DL Calcium Level 9.2 8.5-10.1 MG/DL Corrected Calcium 8.8 8.5-10.1 MG/DL Total Bilirubin 0.4 0.1-1.0 MG/DL Aspartate Amino Transf (AST/SGOT) 17 5-34 U/L Alanine Aminotransferase (ALT/SGPT) 17 0-55 U/L Alkaline Phosphatase 97 40-136 U/L Troponin I < 0.30 <0.30 NG/ML Total Protein 7.7 6.4-8.2 GM/DL Albumin 4.5 3.2-4.5 GM/DL My Orders Orders - DARIAN SWEET MD Ct Head Wo (07/26/22 21:32) Cbc With Automated Diff (07/26/22 21:39) Protime With Inr (07/26/22 21:39) Partial Thromboplastin Time (07/26/22 21:39) Comprehensive Metabolic Panel (07/26/22 21:39) Troponin I Fs (07/26/22 21:39) Ua Culture If Indicated (07/26/22 21:39) Ekg Tracing (07/26/22 21:39) Accucheck Stat ONCE (07/26/22 21:39) Ed Iv/Invasive Line Start (07/26/22 21:39) Vital Signs Stroke Patient Q15M (07/26/22 21:39) O2 (07/26/22 21:39) Intake & Output 06,14,22 (07/26/22 21:39) Monitor-Rhythm Ecg Trace Only (07/26/22 21:39) Dysphagia Screening Tool Q10MX1 (07/26/22 21:39) Ketorolac Injection (Toradol Injection) (07/26/22 21:57) Lorazepam Injection (Ativan Injection) (07/26/22 21:57) Drug Screen Stat (Urine) (07/26/22 21:57) Aspirin Tablet (Aspirin Tablet) (07/26/22 23:09) Vital Signs/I&O 2/23/23 2/23/23 21:32 23:38 Temp 36.9 Pulse 98 92 Resp 16 16 B/P (MAP) 140/91 (107) 134/86 Pulse Ox 99 99 O2 Delivery Room Air Room Air Progress Progress Note #1: Progress Note Potential diagnosis of anxiety, atypical migraine, stroke Obtain stat CT scan of the head to evaluate for intracranial hemorrhage or mass. Unable to perform a CT angiogram due to allergies from contrast dye. Initial NIH stroke scale was 1 off for his decreased sensation on the left side compared to the right. Placed on cardiac nurse monitoring to watch his heart rate and rhythm. Electrocardiogram to evaluate his cardiac rate and rhythm. Peripheral IV access and obtain blood for complete blood count, comprehensive metabolic profile, urinalysis, urine drug screen, alcohol. He is outside of a treatment window for tPA or clot retrieval due to his delayed presentation of over 36 hours of symptoms. He was asking the radioisotope technician if he could get something more for anxiety. He had already taking clonazepam 0.5 mg approximately 90 minutes prior to coming to the emergency department. Progress Note #2: Time: 21:49 Progress Note My personal interpretation and review of his CT head without contrast I did not see any acute mass or intracranial hemorrhage. His blood work showed no elevation of his white blood cell count to indicate an infection, no low hemoglobin for anemia. His comprehensive metabolic profile was not showing any acute significant abnormality with his electrolytes, renal function, liver function. His urinalysis and urine drug screen were both negative for infection or illicit drugs. Progress Note #3: Time: 22:00 Progress Note I reviewed the radiologist report at 2200 that showed no acute intracranial process. I ordered a dose of Ativan 1 mg IV since patient was requesting something more for anxiety. I also ordered a dose of Toradol 15 mg IV for possible atypical migraine. Patient refused the Toradol but was willing to take the Ativan. 2228 I have reviewed with the patient that his labs test here had all come back looking okay. Patient still states that he feels numbness and decreased sensation to the left side of his body. He did not feel that the Ativan had done anything to help with his symptoms. I advised him that with his contrast allergy I could not perform a CT angiogram to look for large vessel occlusions. Will recommend trying to get him transferred to a facility that has neurology and MRI capabilities to further evaluate him. He had previously been transferred to [facility] in November 2019 when he had similar symptoms. He requested to go to [facility] if possible. We will check with [facility] first since that is a closer facility that would have capability of evaluating him. See if they have capability and capacity to take care of the patient. If not we will check with additional facilities. The closest hospitals to [place] have MRI capability but not neurology services. 4 I called the [facility] access center and discussed with Sade RN, about jono gauthier's presentation and symptoms. Requested possible transfer to [facility] for neurology and MRI services. She stated that she would have to check about capacity and call me back. Progress Note #4: Time: 23:07 Progress Note d/w Dr. Ogden, resident physician on at [facility]. I reviewed the patient's presentation and history as well as his initial vitals and lab and CT findings along with NIHSS of 1. Patient reports having symptoms like this previously and concerned he was having a new stroke or TIA. With no bleeding or acute findings on his CT head and unable to give IV dye to perform CT angiography would like to get him transferred to facility with neurology and MRI capabilities for further assessment. He requested the patient get a dose of aspirin since he reports a history of Factor V leiden disorder and not taking a blood thinner. he accepted the patient on behalf of Dr. So to transfer to [facility]. Will call back with room assignment. Initial ECG Impression Date: Jul 26, 2022 Initial ECG Impression Time: 21:49 Initial ECG Rate: 89 Initial ECG Rhythm: Normal Sinus Initial ECG Comparisson: Changed (Compared to November 18, 2019 he has improved QT interval) Comment My interpretation of his electrocardiogram shows normal sinus rhythm with a heart rate of 89 bpm. OH interval [address] elevation. QT interval 349 ms with a QTc interval 395 ms. He has a prior tracing from November 18, 2019 that had a prolonged QT interval at that time. This is improved on today's tracing. Diagnostic Imaging Diagonstic Imaging: CT Plain Films/CT/US/NM/MRI: head Comments NAME: LONI BROCK MED REC#: [id number] PT STATUS: REG ER : 1985 PHYSICIAN: DARIAN SWEET MD ADMIT DATE: 07/26/22/ER FS Draft Date of Exam:07/26/22 CT HEAD WO Clinical indication: Patient with left-sided numbness. Patient has history of TIAs and stroke. Exam: Axial CT scan of the brain without IV contrast with coronal and sagittal reformatted images. Auto Exposure Controls were utilized during the CT exam to meet ALARA standards for radiation dose reduction. Comparison: Head CT without contrast dated 07/17/2020. Findings: There is no evidence of acute cerebral infarct, intracranial hemorrhage or gross mass effect. The brain parenchymal volume appears appropriate for patient's age. There is normal garcia-white matter distinction. There is no significant midline shift or herniation. Again noted dense appearing [place] of [place] vessels which were also noted on the prior study. There is no evidence of hydrocephalus. The basal cisterns are unremarkable. The skull, extracranial soft tissue and orbits are unremarkable. The paranasal sinuses are unremarkable. Temporal bones show no significant abnormality. Impression: Stable CT scan of the brain with no acute intracranial process. Dictated on workstation # [id number] Dict: 07/26/222146 Trans: 07/26/222150 [facility] [id number] Interpreted by: DANIELLE OGLESBY MD Electronically signed by: Reviewed: Reviewed by Me (Reviewed radiologist report at 2200) Departure Impression Primary Impression: Decreased sensation Additional Impressions: Anxiety History of TIA (transient ischemic attack) and stroke Factor V Leiden Disposition: SHT-TRM HOSP Condition: Stable Transfer Transfer Reason: Exceeds level of care (Needs Neurology services and MRI capabilities) Time Spoke to Accepting Phy: 23:07 Transfer Progress Notes d/w Dr. Ogden, resident physician on at [facility]. I reviewed the patient's presentation and history as well as his initial vitals and lab and CT findings along with NIHSS of 1. Patient reports having symptoms like this previously and concerned he was having a new stroke or TIA. With no bleeding or acute findings on his CT head and unable to give IV dye to perform CT angiography would like to get him transferred to facility with neurology and MRI capabilities for further assessment. He requested the patient get a dose of aspirin since he reports a history of Factor V leiden disorder and not taking a blood thinner. he accepted the patient on behalf of Dr. So to transfer to [facility]. Will call back with room assignment. Transfer Facility: [facility] Method of Transfer: EMS Departure-Patient Inst. Referrals: MILLICENT POLLOCK APRN (PCP) Primary Care Physician [facility] (Family) Primary Care Physician DARIAN SWEET MD Jul 26, 2022 21:46
--- NOTE | 2022-07-26 21:51 | Diagnostic Imaging Report ---
Clinical indication: Patient with left-sided numbness. Patient has history of TIAs and stroke. Exam: Axial CT scan of the brain without IV contrast with coronal and sagittal reformatted images. Auto Exposure Controls were utilized during the CT exam to meet ALARA standards for radiation dose reduction. Comparison: Head CT without contrast dated 07/17/2020. Findings: There is no evidence of acute cerebral infarct, intracranial hemorrhage or gross mass effect. The brain parenchymal volume appears appropriate for patient's age. There is normal garcia-white matter distinction. There is no significant midline shift or herniation. Again noted dense appearing [place] of [place] vessels which were also noted on the prior study. There is no evidence of hydrocephalus. The basal cisterns are unremarkable. The skull, extracranial soft tissue and orbits are unremarkable. The paranasal sinuses are unremarkable. Temporal bones show no significant abnormality. Impression: Stable CT scan of the brain with no acute intracranial process. Dictated by: Dictated on workstation # [id number]
[2022-07-26 21:53] LABS: BILIRUBIN,URINE NEGATIVE (NEGATIVE); CLARITY,URINE CLEAR; COLOR,URINE YELLOW; GLUCOSE, URINE (UA) NEGATIVE (NEGATIVE); KETONES,URINE NEGATIVE (NEGATIVE); LEUKOCYTE ESTERASE ,URINE NEGATIVE (NEGATIVE); NITRITE,URINE NEGATIVE (NEGATIVE); PROTEIN,URINE NEGATIVE (NEGATIVE)
[2022-07-26 21:53] LABS: BASOPHILS # (AUTO) 0.1 10^3/uL (0.0-0.1); BASOPHILS % (AUTO) 1 % (0-10); EOSINOPHILS # (AUTO) 0.2 10^3/uL (0.0-0.3); EOSINOPHILS % (AUTO) 2 % (0-10); HEMATOCRIT 44 % (40-54); HEMOGLOBIN 14.9 g/dL (13.3-17.7); LYMPHOCYTES # (AUTO) 2.4 10^3/uL (1.0-4.0); LYMPHOCYTES % (AUTO) 25 % (12-44); MEAN CORPUSCULAR HEMOGLOBIN 29 pg (25-34); MEAN CORPUSCULAR HGB CONC 34 g/dL (32-36); MEAN CORPUSCULAR VOLUME 86 fL (80-99); MONOCYTES # (AUTO) 0.9 10^3/uL (0.0-1.0); MONOCYTES % (AUTO) 9 % (0-12); NEUTROPHILS # (AUTO) 6.4 10^3/uL (1.8-7.8); NEUTROPHILS % (AUTO) 64 % (42-75); PLATELET COUNT 246 10^3/uL (130-400)
[2022-07-26] MEDS ORDERED: LORazepam INJ 2 MG/ML (ATIVAN) VIAL IVP STA (21:57)
[2022-07-26] MEDS ORDERED: KETOROLAC 15 MG/ML VIAL IVP STA (21:57)
[2022-07-26 22:03] LABS: BACTERIA,URINE NEGATIVE /HPF
[2022-07-26 22:05] LABS: INR 0.9 (0.8-1.4); PROTHROMBIN TIME PATIENT 12.5 SEC (12.2-14.7)
[2022-07-26 22:12] LABS: AMPHETAMINE SCREEN, URINE NEGATIVE (NEGATIVE); BARBITURATE SCREEN URINE NEGATIVE (NEGATIVE); BENZODIAZEPINES SCREEN URINE NEGATIVE (NEGATIVE); CANNABINOID SCREEN, URINE NEGATIVE (NEGATIVE); COCAINE SCREEN URINE NEGATIVE (NEGATIVE); METHADONE STAT NEGATIVE (NEGATIVE); OPIATE SCREEN URINE NEGATIVE (NEGATIVE); OXYCODONE STAT NEGATIVE (NEGATIVE); PROPOXYPHENE STAT NEGATIVE (NEGATIVE); TRICYCLIC ANTIDEPRESSANTS SCRE NEGATIVE (NEGATIVE)
[2022-07-26 22:14] LABS: ALANINE AMINOTRANSFERASE 17 U/L (0-55); ALKALINE PHOSPHATASE 97 U/L (40-136); BILIRUBIN,TOTAL 0.4 MG/DL (0.1-1.0); BUN/CREATININE RATIO 16; CALCIUM 9.2 MG/DL (8.5-10.1); CARBON DIOXIDE 27 MMOL/L (21-32); CHLORIDE 96 MMOL/L (98-107); CREATININE SERUM 0.96 MG/DL (0.60-1.30); GFR ESTIMATED 105; GLUCOSE 96 MG/DL (70-105); POTASSIUM 3.7 MMOL/L (3.6-5.0); SODIUM 136 MMOL/L (135-145); TOTAL PROTEIN 7.7 GM/DL (6.4-8.2)
[2022-07-26 22:15] LABS: ALBUMIN 4.5 GM/DL (3.2-4.5)
[2022-07-26] MEDS ORDERED: ASPIRIN 325 MG (5 GR) TABLET PO STA (23:09)
[2022-07-26 23:38] VITALS: BP 134/86
== END 2022-07-26 23:49 | disposition short-term general hospital (02) ==
LOC: EDUNIT# 21:30 → ER FS 21:32
DX: R20.8 Other disturbances of skin sensation (principal); F41.9 Anxiety disorder, unspecified; D68.51 Activated protein C resistance; Z86.73 Personal history of transient ischemic attack (TIA), and cerebral infarction without residual deficits; Z28.310 Unvaccinated for COVID-19
CPT/HCPCS: 36415; 70450; 80053; 80306; 81000; 84484; 85025; 85610; 85730; 93005; 93041

== ENCOUNTER 2023-01-03 10:16 | Emergency (ER) | payer BC ==
[~2023-01-03] VITALS: Ht 195 cm; Wt 120.0 kg
[2023-01-03 10:25] VITALS: BP 158/86
[2023-01-03] MEDS ORDERED: ONDANSETRON 4 MG/2 ML (SDV) Z0FRAN IVP ONE (10:30)
[2023-01-03] MEDS ORDERED: NS IV 1000 ML 1,000 ML IV SCH ×2 (10:30→11:15)
[2023-01-03 10:33] LABS: BASOPHILS % (AUTO) 1 % (0-10); EOSINOPHILS # (AUTO) 0.1 10^3/uL (0.0-0.3); EOSINOPHILS % (AUTO) 1 % (0-10); HEMATOCRIT 45 % (40-54); HEMOGLOBIN 15.4 g/dL (13.3-17.7); LYMPHOCYTES # (AUTO) 1.2 10^3/uL (1.0-4.0); LYMPHOCYTES % (AUTO) 19 % (12-44); MEAN CORPUSCULAR HEMOGLOBIN 29 pg (25-34); MEAN CORPUSCULAR HGB CONC 34 g/dL (32-36); MEAN CORPUSCULAR VOLUME 86 fL (80-99); MEAN PLATELET VOLUME 10.4 fL (9.0-12.2); MONOCYTES # (AUTO) 1.2 10^3/uL (0.0-1.0); MONOCYTES % (AUTO) 18 % (0-12); NEUTROPHILS # (AUTO) 3.9 10^3/uL (1.8-7.8); NEUTROPHILS % (AUTO) 61 % (42-75); PLATELET COUNT 210 10^3/uL (130-400); WHITE BLOOD COUNT 6.4 10^3/uL (4.3-11.0)
[2023-01-03 10:49] LABS: ATYPICAL LYMPHOCYTES 2 %; BAND NEUTROPHILS 2 %; BASOPHILS % (MANUAL) 0 %; EOSINOPHILS % (MANUAL) 2 %; LYMPHOCYTES % (MANUAL) 15 %; MONOCYTES % (MANUAL) 17 %; NEUTROPHILS % (MANUAL) 62 %; PLATELET ESTIMATE NORMAL; RBC MORPH NORMAL
[2023-01-03 10:55] LABS: ALANINE AMINOTRANSFERASE 14 U/L (0-55); ALKALINE PHOSPHATASE 92 U/L (40-136); BILIRUBIN,TOTAL 0.7 MG/DL (0.1-1.0); BUN/CREATININE RATIO 23; CALCIUM 9.5 MG/DL (8.5-10.1); CARBON DIOXIDE 23 MMOL/L (21-32); CHLORIDE 103 MMOL/L (98-107); CREATININE SERUM 0.96 MG/DL (0.60-1.30); GFR ESTIMATED 104; GLUCOSE 99 MG/DL (70-105); POTASSIUM 4.2 MMOL/L (3.6-5.0); SODIUM 138 MMOL/L (135-145); TOTAL PROTEIN 7.8 GM/DL (6.4-8.2)
[2023-01-03 10:56] LABS: ALBUMIN 4.6 GM/DL (3.2-4.5); LIPASE 26 U/L (8-78)
--- NOTE | 2023-01-03 10:57 | ED GI ---
General Chief Complaint: Abdominal/GI Problems Stated Complaint: DIZZINESS; VOMITING; DIARRHEA Nursing Triage Note: Patient has presented to ER with cc of vomitting x 2 since midnight and diarrhea x 4 since midnight. Patient reports that he started yesterday with feeling tired. This morning has had some dizziness. HE called the "nurse line" and he states they told him to go to the ER for evaluation that he is dehydrated. Source of Information: Patient, RN Notes Reviewed Exam Limitations: No Limitations History of Present Illness Date Seen by Provider: Jan 03, 2023 Time Seen by Provider: 10:20 Initial Comments 37-year-old male patient presented POV with complaining of dehydration. Patient stated he was outside at hot temperature during the last few days while he usually is working inside and had only 1 bottle of water but drank sweet iced tea frequently that made him more dehydrated. Patient stated since yesterday he felt tired and had dizziness since last night. Patient stated he had 4 episodes of diarrhea since midnight and 2 episodes of nonbloody vomiting. Patient complaining of decrease of urine output and appetite and stated he had not been eat or drink anything today. Patient denies abdominal pain or muscle cramping, sick contact, using drugs or alcohol, chest pain, shortness of breath. Patient stated he does not like to take medication and did not take any medicine for vomiting and diarrhea. Allergies and Home Medications Allergies Coded Allergies: Iodinated Contrast Media (Verified Allergy, Severe, Anaphylaxis, 11/01/21) nut - unspecified (Verified Allergy, Severe, Anaphylaxis, 11/01/21) Patient Home Medication List Home Medication List Reviewed: Yes Cyclobenzaprine HCl (Cyclobenzaprine HCl) 10 Mg Tablet, 10 MG PO Q8H PRN for SPASMS Prescribed by: DARIAN SWEET on 10/29/212139 Dicyclomine HCl (Dicyclomine HCl) 20 Mg Tablet, 20 MG PO Q6H Prescribed by: HARISH TORRES on 11/01/21 1313 Hydrocodone/Acetaminophen (Hydrocodone-Acetamin 5-325 mg) 5 Mg-325 Mg Tablet, 1 TAB PO Q6H PRN for PAIN-SEVERE (8-10) Prescribed by: DARIAN SWEET on 10/29/212140 Review of Systems Review of Systems Constitutional: see HPI, weakness EENTM: No Symptoms Reported Respiratory: No Symptoms Reported Cardiovascular: No Symptoms Reported Gastrointestinal: See HPI Genitourinary: See HPI Musculoskeletal: see HPI Skin: no symptoms reported Psychiatric/Neurological: No Symptoms Reported Endocrine: No Symptoms Reported Hematologic/Lymphatic: No Symptoms Reported All Other Systems Reviewed Negative Unless Noted: Yes Past Ukwfuap-Aaazmr-Lukbaz Hx Patient Social History Tobacco Use?: No Use of E-Cig and/or Vaping dev: No Substance use?: No Alcohol Use?: No Immunizations Up To Date Tetanus Booster (TDap): Unknown First/Initial COVID19 Vaccinat: denies Seasonal Allergies Seasonal Allergies: No Past Medical History Surgery/Hospitalization HX: multiple abdominal surgeries related to umbillical hernia with mesh placement, Reports stroke in 2020 without residual deficits Surgeries: Yes (Multiple hernia repair) Abdominal, Testicular Respiratory: No Cardiac: No Neurological: Yes TIA Genitourinary: No Gastrointestinal: No Musculoskeletal: No Endocrine: No HEENT: No Cancer: No Psychosocial: Yes ADD/ADHD Integumentary: No Blood Disorders: Yes (Factor V) Physical Exam Vital Signs Vital Signs - First Documented 01/03/23 10:25 Temp 36.6 Pulse 89 Resp 18 B/P (MAP) 158/86 (110) Pulse Ox 96 O2 Delivery Room Air Capillary Refill : Height/Weight/BMI Height: '" Weight: lbs. oz. kg; 31.00 BMI Method: General Appearance: WD/WN, mild distress HEENT: PERRL/EOMI, normal ENT inspection, TMs normal, pharynx normal, other (Dry oral mucosa) Neck: non-tender, full range of motion, supple, normal inspection Respiratory: chest non-tender, lungs clear, normal breath sounds, no respiratory distress, no accessory muscle use Cardiovascular: normal peripheral pulses, regular rate, rhythm, no edema, no gallop, no JVD, no murmur Peripheral Pulses: 2+ Carotid (R), 2+ Carotid (L), 2+ Femoral (R), 2+ Femoral (L), 2+ Dorsalis Pedis (R), 2+ Left Dors-Pedis (L), 2+ Radial Pulses (R), 2+ Radial Pulses (L) Gastrointestinal: normal bowel sounds, non tender, soft, no organomegaly, no pulsatile mass Rectal: normal exam Genital/Rectal: normal genital exam Extremities: normal range of motion, non-tender, normal inspection, no pedal e hannah, no calf tenderness, normal capillary refill, pelvis stable Back: normal inspection, no CVA tenderness Pelvic: discharge Neurologic/Psychiatric: no motor/sensory deficits, alert, normal mood/affect, oriented x 3 Skin: normal color, warm/dry Lymphatic: no adenopathy Progress/Results/Core Measures Results/Orders Lab Results Laboratory Tests Test 01/03/23 10:27 Range/Units White Blood Count 6.4 4.3-11.0 10^3/uL Red Blood Count 5.29 4.30-5.52 10^6/uL Hemoglobin 15.4 13.3-17.7 g/dL Hematocrit 45 40-54 % Mean Corpuscular Volume 86 80-99 fL Mean Corpuscular Hemoglobin 29 25-34 pg Mean Corpuscular Hemoglobin Concent 34 32-36 g/dL Red Cell Distribution Width 11.5 10.0-14.5 % Platelet Count 210 130-400 10^3/uL Mean Platelet Volume 10.4 9.0-12.2 fL Immature Granulocyte % (Auto) 0 % Neutrophils (%) (Auto) 61 42-75 % Lymphocytes (%) (Auto) 19 12-44 % Monocytes (%) (Auto) 18 H 0-12 % Eosinophils (%) (Auto) 1 0-10 % Basophils (%) (Auto) 1 0-10 % Neutrophils # (Auto) 3.9 1.8-7.8 10^3/uL Lymphocytes # (Auto) 1.2 1.0-4.0 10^3/uL Monocytes # (Auto) 1.2 H 0.0-1.0 10^3/uL Eosinophils # (Auto) 0.1 0.0-0.3 10^3/uL Basophils # (Auto) 0.0 0.0-0.1 10^3/uL Immature Granulocyte # (Auto) 0.0 0.0-0.1 10^3/uL Neutrophils % (Manual) 62 % Lymphocytes % (Manual) 15 % Monocytes % (Manual) 17 % Eosinophils % (Manual) 2 % Basophils % (Manual) 0 % Band Neutrophils 2 % Atypical Lymphocytes 2 % Platelet Estimate NORMAL Blood Morphology Comment NORMAL Sodium Level 138 135-145 MMOL/L Potassium Level 4.2 3.6-5.0 MMOL/L Chloride Level 103 98-107 MMOL/L Carbon Dioxide Level 23 21-32 MMOL/L Anion Gap 12 5-14 MMOL/L Blood Urea Nitrogen 22 H 7-18 MG/DL Creatinine 0.96 0.60-1.30 MG/DL Estimat Glomerular Filtration Rate 104 BUN/Creatinine Ratio 23 Glucose Level 99 70-105 MG/DL Calcium Level 9.5 8.5-10.1 MG/DL Corrected Calcium 8.5-10.1 MG/DL Total Bilirubin 0.7 0.1-1.0 MG/DL Aspartate Amino Transf (AST/SGOT) 13 5-34 U/L Alanine Aminotransferase (ALT/SGPT) 14 0-55 U/L Alkaline Phosphatase 92 40-136 U/L Total Protein 7.8 6.4-8.2 GM/DL Albumin 4.6 H 3.2-4.5 GM/DL Lipase 26 8-78 U/L My Orders Orders - KALE DELCID MD Ed Iv/Invasive Line Start (01/03/23 10:26) Ns Iv 1000 Ml (Sodium Chloride 0.9%) (01/03/23 10:30) Comprehensive Metabolic Panel (01/03/23 10:26) Lipase (01/03/23 10:26) Ua Culture If Indicated (01/03/23 10:26) Cbc With Automated Diff (01/03/23 10:26) Ondansetron Injection (Zofran Injectio (01/03/23 10:30) Manual Differential (01/03/23 10:27) Ns Iv 1000 Ml (Sodium Chloride 0.9%) (01/03/23 11:15) Medications Given in ED Current Medications Medications Dose Ordered Sig/Becca Route Start Time Stop Time Status Last Admin Dose Admin Ondansetron HCl 4 mg ONCE ONCE IVP 01/03/23 10:30 01/03/23 10:31 DC 01/03/23 10:33 4 MG Vital Signs/I&O 01/03/23 10:25 Temp 36.6 Pulse 89 Resp 18 B/P (MAP) 158/86 (110) Pulse Ox 96 O2 Delivery Room Air Blood Pressure Mean: 110 Progress Progress Note : Time: 11:20 Progress Note Patient with history of ADHD and previous dehydration complaining of feeling dizzy and weak after exposed to heat for several days. Patient complaining of episode of nausea and vomiting and diarrhea since midnight. Patient had a stable vital signs and unremarkable physical exam except for dry oral mucosa. Patient treated with 2 L of IV fluids and Zofran with improvement of his condition and tolerated oral intake. CBC and CMP and lipase was ordered and r arvindiewed by me and did not show acute finding except for BUN of 22. Patient did not give a urine sample, advised to increase fluid intake and follow-up with primary care physician or return to ER as needed. Prescription for Zofran was given Departure Impression Primary Impression: Dehydration Additional Impression: Acute gastroenteritis Disposition: HOME, SELF-CARE Condition: Improved Departure-Patient Inst. Decision time for Depature: 11:18 Referrals: NO,LOCAL PHYSICIAN (PCP) Primary Care Physician Patient Instructions: Dehydration, Adult (DC), Diarrhea, Adult ED, Dehydration, Adult ED, Viral Gastroenteritis, Adult (DC) Add. Discharge Instructions: Drink plenty of liquids Do not eat solid food today May take [id number] Imodium as needed for diarrhea Follow-up with your primary care physician in 3 to 5 days Return to ER as needed All discharge instructions reviewed with patient and/or family. Voiced understanding. Scripts Ondansetron (Ondansetron Odt) 4 Mg Tab.rapdis 4 MG PO Q6H PRN for NAUSEA/VOMITING, #12 TAB 0 Refills Prov: KALE DELCID MD 01/03/23 KALE DELCID MD Jan 03, 2023 10:57
[2023-01-03] MEDS ORDERED: ONDA4TAB11 PO (11:20)
== END 2023-01-03 11:40 | disposition home or self-care (01) ==
LOC: EDUNIT# 10:16 → ER FS 10:17
DX: E86.0 Dehydration (principal); K52.9 Noninfective gastroenteritis and colitis, unspecified
CPT/HCPCS: 36415; 80053; 83690; 85007; 85027; 96361; 96374